=== PATIENT | male | born 1965 | race Caucasian/White ===

== ENCOUNTER → 2018-08-22 | Outpatient (CLI) | payer OTHER ==
--- NOTE | 2018-08-22 10:22 | CT ---
EXAMINATION TYPE: CT chest wo con DATE OF EXAM: 08/22/2018 COMPARISON: NONE HISTORY: Solitary pulmonary nodule per order. Abnormal x-ray [address] DLP: 355.6 mGycm. Automated Exposure Control for Dose Reduction was Utilized. TECHNIQUE: CT scan of the thorax is performed without IV contrast. FINDINGS: LUNGS: The lungs are grossly clear, there is no concerning parenchymal mass or nodule identified. No suspicious groundglass opacity or consolidation is seen bilaterally. There is no pleural effusion or pneumothorax seen bilaterally. The tracheobronchial tree is patent. MEDIASTINUM: Lack of IV contrast is noted to limit evaluation for mediastinal and especially hilar ad enopathy. There are no definitive greater than 1 cm hilar or mediastinal lymph nodes. No cardiomega ly or pericardial effusion is seen. Mild coronary artery calcification is present which is noted jamal er for coronary artery disease. Ascending Aorta measures up to 3.5 cm near pulmonary bifurcation. OTHER: Small degree of bilateral subareolar gynecomastia is noted. Visualized liver is diffusely hypo dense consistent with fatty infiltration. There is 4 mm calculus upper pole left kidney coronal image [id number] incidentally noted. IMPRESSION: No suspicious nodules are adenopathy. Incidental 4 mm nonobstructing upper pole left triston l calculus.
== END | disposition home or self-care (01) ==
LOC: RADCTMAIN 06:57
PROVIDERS: ATTEND Family Medicine
DX: R91.1 Solitary pulmonary nodule (principal)
CPT/HCPCS: 71250

== ENCOUNTER → 2018-11-07 | Outpatient (CLI) | payer OTHER ==
--- NOTE | 2018-11-07 17:40 | CONS ---
CONSULTATION REASON FOR CONSULTATION: Sleep apnea. HISTORY OF PRESENT ILLNESS: This is a 53-year-old male patient diagnosed having sleep apnea more than 15 years ago. Over the years, he has tried different CPAP machines. He has purchased a lot of the machines on line as the patient did not have any medical insurance and he was very much symptomatic from his obstructive sleep apnea. He has also purchased different nose masks. His efforts have failed and the patient is currently very much symptomatic to the point where he does not know what to do. He is carrying an older generation REM Star CPAP unit which he probably owned more than 10 years ago. The machine seems to be defective noisy and the humidification chamber is dysfunction also. The patient is snoring. He quits breathing. He is waking up very much tired and sleepy during the day. He wakes up gasping for air. He wakes up with dry mouth. He is very much somnolent and sleepy to the point where he is unable to continue with his day-to-day activities or perform well at his company as the patient owns a staffing company and states that he is not going to be able to work any more if his sleep apnea is not treated. He goes to bed between 9:00-10 p.m. in the evening. Wakes up at 6 a.m. in the morning. To improve his sleep quality he was given Belsomra which is obviously a sleeping pill. His weight is up over the years and the patient is currently at 224 pounds and unable to lose weight. His neck size is 19. He wakes up tired during the day. He has trouble paying attention, falls asleep during the day. He is very much worried about his sleep habits, problems with memory and concentration, irritability and depression along with some anxiety. PAST MEDICAL HISTORY: 1. Severe obstructive sleep apnea. 2. Hypertension. 3. Obesity. PAST SURGICAL HISTORY: Includes surgical repair of a deviated septum and left hernia repair. DRUG ALLERGIES: Not known. He has seasonal allergies to mold, weeds, grass and horses. OUTPATIENT MEDICATIONS: He is on a blood pressure pill. He takes omeprazole and Belsomra. SOCIAL HISTORY: The patient is a nonsmoker. No history of alcohol. No history of IV drugs. FAMILY HISTORY: Negative for sleep apnea. REVIEW OF SYSTEMS: 12-point review of system was done. He is very much somnolent and sleepy. He thinks he is high risk of falling asleep while driving as the patient feels sleepy and drowsy while driving. Never the less, he has never been involved in a motor vehicle accident. No sleep paralysis. No hallucinations. No cataplexy. Overall, he has gained around 40 pounds over the past 10 years or so. He drinks coffee. His sleep is fragmented and his quality of life was much affected from his obstructive sleep apnea. PHYSICAL EXAMINATION: His BP is 135/91, pulse 98, respirations 16, temperature 99.0. Saturation 97% on room air. Height is 5 feet 8 inches, weight is 224, BMI 34.0. Neck size 19 inches. GENERAL APPEARANCE: Calm and comfortable. HEENT: Head is atraumatic, normocephalic. NECK: Supple. Mallampati class IV. There is no goiter or neck masses. LUNGS: Clear to auscultation. HEART: Sounds regular rate and rhythm. Normal S1/S2. No S3, no S4 and no murmurs. ABDOMEN: Soft, nontender. No organomegaly. EXTREMITIES: No edema. No cyanosis or clubbing. NEUROLOGIC: Alert and oriented x3. No focal neurological deficits. PSYCHIATRIC: Negative for anxiety or depression. SKIN: Negative for any wounds or ulceration. IMPRESSION: 1. Severe symptomatic obstructive sleep apnea. Failed CPAP therapy in the past. The patient's last evaluation was done more than 14 years ago. Most of the previous treatments have been self treatment as the patient has purchased machines and equipment online and treatment has been not successful. 2. Obesity with a BMI of 34. 3. Hypersomnia, [place] score of 16. 4. Hypertension. PLAN: Will need to reestablish diagnosis and following that, the patient will need to go and have another CPAP titration. Will do a Pap nap if needed. I intend to treat this patient with CPAP therapy or BiPAP therapy depending on the his level of comfort. Will pick for him the right pressure and the mask interface. We may ultimately need surgical consultation or another consultation for the [facility] system if CPAP therapy fails to treat this patient's symptoms, symptomatic obstructive sleep apnea. He is very much symptomatic. He was advised not to drive especially when feeling drowsy or sleepy. We will continue to follow. We will proceed with a PSG as soon as possible and proceed with further treatment accordingly. MMDORETHAL / IJN: [id number] /
== END | disposition home or self-care (01) ==
LOC: SLEEP 13:49
PROVIDERS: ATTEND Internal Medicine Critical Care Medicine
DX: G47.33 Obstructive sleep apnea (adult) (pediatric) (principal); F32.9 Major depressive disorder, single episode, unspecified; F41.9 Anxiety disorder, unspecified; I10 Essential (primary) hypertension; E66.9 Obesity, unspecified; J30.2 Other seasonal allergic rhinitis; Z79.899 Other long term (current) drug therapy; Z68.34 Body mass index [BMI] 34.0-34.9, adult; Z99.89 Dependence on other enabling machines and devices
CPT/HCPCS: 99211